=== PATIENT | female | born 1950 | race Caucasian/White ===

== ENCOUNTER 2023-12-12 09:01 | Emergency (ER) | payer BC, MEDICARE, OTHER ==
[~2023-12-12] VITALS: Ht 167.6 cm; Wt 69.8 kg
[2023-12-12] MEDS ORDERED: HYDR12.55 PO (09:38)
[2023-12-12] MEDS ORDERED: ALL10TAB2 PO (09:38)
[2023-12-12] MEDS ORDERED: GABA-282 PO (09:38)
[2023-12-12] MEDS ORDERED: LOSA100T46 PO (09:38)
[2023-12-12] MEDS ORDERED: OXYB10TA23 PO (09:38)
[2023-12-12] MEDS ORDERED: FLUT12AE3 INH (09:39)
[2023-12-12 11:09] LABS: BASO % 0.6 % (0.0-1.0); EOS # 0.2 10^3/uL (0.0-0.5); EOS % 2.7 % (0.0-3.0); HEMATOCRIT 35.4 % (36.0-47.0); HEMOGLOBIN 12.2 g/dl (12.0-15.5); LYMPH # 1.3 10^3/uL (1.5-5.0); LYMPH % 19.5 % (24.0-44.0); MEAN CORPUSCULAR HGB CONC 34.5 g/dl (32.0-36.5); MEAN CORPUSCULAR VOLUME 98.6 fl (80.0-96.0); MONO # 0.6 10^3/uL (0.0-0.8); MONO % 9.4 % (2.0-8.0); NEUTROPHILS # 4.5 10^3/uL (1.5-8.5); NEUTROPHILS % 67.5 % (36.0-66.0); PLATELET COUNT, AUTOMATED 279 10^3/uL (150-450); RED BLOOD COUNT 3.59 10^6/uL (4.00-5.40); WHITE BLOOD COUNT 6.6 10^3/uL (4.0-10.0)
[2023-12-12 11:35] LABS: ALBUMIN 3.4 G/DL (3.2-5.2); ALKALINE PHOSPHATASE 121 U/L (46-116); ALT/SGPT 49 U/L (7.0-40); AST/SGOT 43 U/L (<34); BILIRUBIN,DIRECT 0.1 MG/DL (<0.4); BILIRUBIN,TOTAL 0.3 MG/DL (0.3-1.2); BLOOD UREA NITROGEN 10 MG/DL (9-23); CALCIUM LEVEL 9.3 MG/DL (8.3-10.6); CARBON DIOXIDE LEVEL 26 MMOL/L (20-31); CHLORIDE LEVEL 107 MMOL/L (98-107); CREATININE FOR GFR 0.64 MG/DL (0.55-1.30); GLOMERULAR FILTRATION RATE > 60.0 (>39); GLUCOSE, FASTING 92 MG/DL (74-106); MAGNESIUM LEVEL 1.7 MG/DL (1.8-2.4); POTASSIUM SERUM 4.1 MMOL/L (3.5-5.1); SODIUM LEVEL 139 MMOL/L (136-145); TOTAL PROTEIN 6.7 G/DL (5.7-8.2)
[2023-12-12 11:37] LABS: THYROID STIMULATING HORMONE 0.926 uIU/ML (0.55-4.78)
[2023-12-12] MEDS ORDERED: ISOVUE-370 76% 100ML VIAL As Ordered ONE (11:40)
[2023-12-12] MEDS ORDERED: LOSA50TA28 PO (12:03)
[2023-12-12] MEDS ORDERED: ASPI325T57 PO (12:03)
[2023-12-12] MEDS ORDERED: HOME MED LIST COMPLETE! XX SCH (12:05)
[2023-12-12 16:11] VITALS: BP 152/69; TEMP 96.4; O2SAT 100
== END 2023-12-12 16:19 | disposition home or self-care (01) ==
LOC: M ED 09:01
DX: R47.1 Dysarthria and anarthria (principal); I10 Essential (primary) hypertension; R00.1 Bradycardia, unspecified; Z91.09 Other allergy status, other than to drugs and biological substances; Z79.1 Long term (current) use of non-steroidal anti-inflammatories (NSAID); Z79.899 Other long term (current) drug therapy
CPT/HCPCS: 36415; 70450; 70496; 70498; 70544; 70551; 71045; 80048; 80076; 83735; 84443; 85025; 93005; 93041; 99284; Q9967

== ENCOUNTER 2023-12-14 12:11 | Emergency (ER) | payer MEDICARE ==
[~2023-12-14] VITALS: Ht 167.6 cm; Wt 70.1 kg
[~2023-12-14 12:11] MED LIST: ALL10TAB2 PO; ASPI325T57 PO; FLUT12AE3 INH; GABA-282 PO; HYDR12.55 PO; LOSA100T46 PO; LOSA50TA28 PO; OXYB10TA23 PO
[2023-12-14 14:12] LABS: BASO % 0.6 % (0.0-1.0); EOS # 0.2 10^3/uL (0.0-0.5); EOS % 3.4 % (0.0-3.0); HEMOGLOBIN 12.3 g/dl (12.0-15.5); LYMPH # 1.1 10^3/uL (1.5-5.0); LYMPH % 20.3 % (24.0-44.0); MEAN CORPUSCULAR HEMOGLOBIN 34.6 pg (27.0-33.0); MEAN CORPUSCULAR HGB CONC 35.1 g/dl (32.0-36.5); MEAN CORPUSCULAR VOLUME 98.3 fl (80.0-96.0); MONO # 0.6 10^3/uL (0.0-0.8); MONO % 10.7 % (2.0-8.0); NEUTROPHILS # 3.5 10^3/uL (1.5-8.5); NEUTROPHILS % 64.8 % (36.0-66.0); PLATELET COUNT, AUTOMATED 260 10^3/uL (150-450); RED BLOOD COUNT 3.56 10^6/uL (4.00-5.40); WHITE BLOOD COUNT 5.3 10^3/uL (4.0-10.0)
[2023-12-14 14:22] LABS: ERYTHROCYTE SEDIMENTATION RATE 11 mm/hr (0-30)
[2023-12-14 14:38] LABS: BLOOD UREA NITROGEN 10 MG/DL (9-23); CALCIUM LEVEL 9.1 MG/DL (8.3-10.6); CARBON DIOXIDE LEVEL 25 MMOL/L (20-31); CHLORIDE LEVEL 106 MMOL/L (98-107); CREATININE FOR GFR 0.69 MG/DL (0.55-1.30); GLOMERULAR FILTRATION RATE > 60.0 (>39); GLUCOSE, FASTING 87 MG/DL (74-106); SODIUM LEVEL 137 MMOL/L (136-145)
[2023-12-14 16:19] VITALS: BP 165/84; O2SAT 97
[2023-12-14 16:22] VITALS: TEMP 98.2
[2023-12-17 19:52] LABS: LYME TOTAL ANTIBODY CIA 4.61 Index (<=0.90)
[2023-12-18 21:41] LABS: LYME AB IGG BY CIA 2.52 Index (<=0.90); LYME AB IGM BY CIA 6.52 Index (<=0.90)
== END 2023-12-14 16:29 | disposition home or self-care (01) ==
LOC: M ED 12:11
DX: R47.1 Dysarthria and anarthria (principal); I10 Essential (primary) hypertension; Z91.09 Other allergy status, other than to drugs and biological substances; Z79.1 Long term (current) use of non-steroidal anti-inflammatories (NSAID); Z79.899 Other long term (current) drug therapy